=== PATIENT | female | born 1965 | race Caucasian/White ===

== ENCOUNTER 2018-04-24 10:45 | Emergency (ER) | payer BC, OTHER ==
[2018-04-24] MEDS ORDERED: ONDANSETRON 4 MG TAB.RAPDIS PO ONE (12:12)
[2018-04-24] MEDS ORDERED: MECLIZINE HCL 25 MG TABLET PO ONE ×2 (12:12→13:02)
--- NOTE | 2018-04-24 12:16 | ER Document Report ---
ED Medical Screen (RME) - General Chief Complaint: Dizziness Stated Complaint: VOMITING/DIZZY Time Seen by Provider: 04/24/18 12:03 Notes: Patient is a 52-year-old female that presents to the emergency department for chief complaint of lightheadedness, vertigo, and headache after head injury. ROS: GENERAL: Denies fever or chills CV: Denies chest pain PHYSICAL EXAMINATION: Vital signs reviewed. GENERAL: Well-appearing, well-nourished and in no acute distress. HEAD: Atraumatic, normocephalic. EYES: Pupils equal round extraocular movements intact, conjunctiva are normal. ENT: Nares patent NECK: Normal range of motion CV: Heart regular rate and rhythm LUNGS: No respiratory distress Musculoskeletal: Normal range of motion NEUROLOGICAL: Normal speech PSYCH: Normal mood, normal affect. MDM: Patient seen and examined for rapid initial assessment. Vital signs reviewed. A comprehensive ED assessment and evaluation of the patient, analysis of test results and completion of the medical decision making process will be conducted by additional ED providers. *Note is created using voice recognition software and may contain spelling, syntax or grammatical errors. TRAVEL OUTSIDE OF THE [place] IN LAST 30 DAYS: No - Related Data Allergies/Adverse Reactions: promethazine HCl [From Phenergan] Allergy (Mild, Verified 04/24/18 12:04) chicken derived Allergy (Verified 04/24/18 12:04) chicken Allergy (Uncoded 04/24/18 12:04) Past Medical History - Social History Chew tobacco use (# tins/day): No Frequency of alcohol use: Social Drug Abuse: None - Past Medical History Cardiac Medical History: Denies: Hx Coronary Artery Disease, Hx Heart Attack, Hx Hypertension - LOW BLOOD PRESSURE Pulmonary Medical History: Denies: Hx Asthma, Hx Bronchitis, Hx COPD, Hx Pneumonia Neurological Medical History: Reports: Hx Migraine. Denies: Hx Cerebrovascular Accident, Hx Seizures Renal/ Medical History: Denies: Hx Peritoneal Dialysis Musculoskeltal Medical History: Denies Hx Arthritis Past Surgical History: Reports: Hx Abdominal Surgery, Hx Hysterectomy - Immunizations Hx Diphtheria, Pertussis, Tetanus Vaccination: Yes Physical Exam - Vital signs Vitals: Temp Pulse Resp BP Pulse Ox 97.8 F 75 16 134/79 H 98 04/24/18 11:09 04/24/18 11:09 04/24/18 11:09 04/24/18 11:09 04/24/18 11:09 Course - Vital Signs Vital signs: Temp Pulse Resp BP Pulse Ox 97.8 F 75 16 134/79 H 98 04/24/18 11:09 04/24/18 11:09 04/24/18 11:09 04/24/18 11:09 04/24/18 11:09 Doctor's Discharge - Discharge Referrals: OSCAR SIMMONS MD [Primary Care Provider] - Follow up as needed
--- NOTE | 2018-04-24 12:49 | RADIOLOGY REPORT (SQ) ---
EXAM DESCRIPTION: CT HEAD WITHOUT COMPLETED DATE/TIME: 04/24/2018 12:39 pm REASON FOR STUDY: head injury, vomiting, neck pain COMPARISON: 06/06/2011. TECHNIQUE: Axial images acquired through the brain without intravenous contrast. Images reviewed wi th bone, brain and subdural windows. Additional sagittal and coronal reconstructions were generated. Images stored on PACS. All CT scanners at this facility use dose modulation, iterative reconstruction, and/or weight based d osing when appropriate to reduce radiation dose to as low as reasonably achievable (ALARA). [facility]: Dose Right [facility]: CareDose [facility]: Dose Right [facility]: Teradose 4D [facility]: [facility] RADIATION DOSE: CT Rad equipment meets quality standard of care and radiation dose reduction techniq ues were employed. CTDIvol: 53.2 mGy. DLP: 991 mGy-cm. mGy. LIMITATIONS: None. FINDINGS: VENTRICLES: Normal size and contour. CEREBRUM: No masses. No hemorrhage. No midline shift. No evidence for acute infarction. Normal gra y/white matter differentiation. No areas of low density in the white matter. CEREBELLUM: No masses. No hemorrhage. No alteration of density. No evidence for acute infarction. EXTRAAXIAL SPACES: No fluid collections. No masses. ORBITS AND GLOBE: No intra- or extraconal masses. Normal contour of globe without masses. CALVARIUM: No fracture. PARANASAL SINUSES: No fluid or mucosal thickening. SOFT TISSUES: No mass or hematoma. OTHER: No other significant finding. IMPRESSION: NORMAL BRAIN CT WITHOUT CONTRAST. EVIDENCE OF ACUTE STROKE: NO. COMMENT: Quality ID # [id number]: Final reports with documentation of one or more dose reduction techniques (e.g., Automated exposure control, adjustment of the mA and/or kV according to patient size, use of iterative reconstruction technique) TECHNICAL DOCUMENTATION: JOB ID: [id number] [employer]- All Rights Reserved Reading location - IP/workstation name: [email or web address]
--- NOTE | 2018-04-24 12:50 | RADIOLOGY REPORT (SQ) ---
EXAM DESCRIPTION: CT CERVICAL SPINE WITHOUT COMPLETED DATE/TIME: 04/24/2018 12:39 pm REASON FOR STUDY: head injury, neck pain COMPARISON: None. TECHNIQUE: Axial images acquired through the cervical spine without intravenous contrast. Images re viewed with lung, soft tissue and bone windows. Reconstructed coronal and sagittal MPR images review ed. Images stored on PACS. All CT scanners at this facility use dose modulation, iterative reconstruction, and/or weight based d osing when appropriate to reduce radiation dose to as low as reasonably achievable (ALARA). [facility]: Dose Right [facility]: CareDose [facility]: Dose Right [facility]: Teradose 4D [facility]: [employer] RADIATION DOSE: CT Rad equipment meets quality standard of care and radiation dose reduction techniq ues were employed. CTDIvol: 19.7 mGy. DLP: 407 mGy-cm. mGy. LIMITATIONS: None. FINDINGS: ALIGNMENT: Anatomic. MINERALIZATION: Normal. VERTEBRAL BODIES: No fractures or dislocation. DISCS: No significant disc disease. FACETS, LATERAL MASSES, POSTERIOR ELEMENTS: No fractures. No dislocation. No acute findings. HARDWARE: None in the spine. VISUALIZED RIBS: No fractures. LUNG APICES AND SOFT TISSUES: No significant or acute findings. OTHER: No other significant finding. IMPRESSION: NO ACUTE OR SIGNIFICANT FINDINGS IN THE CERVICAL SPINE. TECHNICAL DOCUMENTATION: JOB ID: [id number] Quality ID # [id number]: Final reports with documentation of one or more dose reduction techniques (e.g., Au tomated exposure control, adjustment of the mA and/or kV according to patient size, use of iterative reconstruction technique) 2010 [employer]- All Rights Reserved Reading location - IP/workstation name: [email or web address]
--- NOTE | 2018-04-24 13:01 | ER Document Report ---
ED General - General Mode of Arrival: Ambulatory Information source: Patient TRAVEL OUTSIDE OF THE [place] IN LAST 30 DAYS: No <CHLOE ZARCO - Last Filed: 04/24/18 14:22> <JERRY WILSON - Last Filed: 04/24/18 14:42> - General Chief Complaint: Dizziness Stated Complaint: VOMITING/DIZZY Time Seen by Provider: 04/24/18 12:03 Notes: 52-year-old female who presents to the emergency department today with complaints of neck pain, headache, dizziness. Patient states she has been able to correlate that a few days ago, Monday, at work she was trying to remove a door from a piece of equipment and the door fell and hit her on top of the head forcing her head and neck downwards. Patient states that a few minutes after that occurred she began dry heaving. Patient states she has had dizziness elicited with rapid head movement along with nausea since this. Patient denies diarrhea. (CHLOE ZARCO) - Related Data Allergies/Adverse Reactions: promethazine HCl [From Phenergan] Allergy (Mild, Verified 04/24/18 12:04) chicken derived Allergy (Verified 04/24/18 12:04) chicken Allergy (Uncoded 04/24/18 12:04) Past Medical History - General Information source: Patient - Social History Smoking Status: Never Smoker Cigarette use (# per day): No Chew tobacco use (# tins/day): No Frequency of alcohol use: Social Drug Abuse: None Lives with: Family Family History: Reviewed & Not Pertinent Patient has suicidal ideation: No Patient has homicidal ideation: No Neurological Medical History: Reports: Hx Migraine Past Surgical History: Reports: Hx Abdominal Surgery, Hx Hysterectomy - Immunizations Hx Diphtheria, Pertussis, Tetanus Vaccination: Yes <CHLOE ZARCO - Last Filed: 04/24/18 14:22> Review of Systems - Review of Systems Constitutional: No symptoms reported EENT: No symptoms reported Cardiovascular: See HPI, Dizziness Respiratory: No symptoms reported Gastrointestinal: No symptoms reported Genitourinary: No symptoms reported Female Genitourinary: No symptoms reported Musculoskeletal: See HPI, Neck pain Skin: No symptoms reported Hematologic/Lymphatic: No symptoms reported Neurological/Psychological: See HPI, Headaches -: Yes All other systems reviewed and negative <CHLOE ZARCO - Last Filed: 04/24/18 14:22> Physical Exam <HAROLDOCHLOE - Last Filed: 04/24/18 14:22> <JERRY WILSON - Last Filed: 04/24/18 14:42> - Vital signs Vitals: Temp Pulse Resp BP Pulse Ox 97.8 F 75 16 134/79 H 98 04/24/18 11:09 04/24/18 11:09 04/24/18 11:09 04/24/18 11:09 04/24/18 11:09 - Notes Notes: Physical Exam: General: Alert, appears well. HEENT: Normocephalic. Atraumatic. PERRL. Extraocular movements intact. Oropharynx clear. Dizziness elicited with rapid head movement. Neck: Supple. Posterior cervical, trapezius, and scalp musculature tenderness to palpation. Respiratory: No respiratory distress. Clear and equal breath sounds bilaterally. Cardiovascular: Regular rate and rhythm. Abdominal: Normal Inspection. Non-tender. No distension. Normal Bowel Sounds. Back: Non-tender. No deformity or step off. Extremities: Moves all four extremities. Upper extremities: Normal inspection. Normal ROM. Lower extremities: Normal inspection. No edema. Normal ROM. Neurological: Normal cognition. AAOx4. Normal speech. Psychological: Normal affect. Normal Mood. Skin: Warm. Dry. Normal color. (CHLOE ZARCO) Course <HAROLDOCHLOE - Last Filed: 04/24/18 14:22> - Diagnostic Test Radiology reviewed: Image reviewed, Reports reviewed - CT scans of the head and neck are unremarkable. <JERRY WILSON - Last Filed: 04/24/18 14:42> - Re-evaluation Re-evalutation: 04/24/18 14:37 The patient did not really get much change in her dizzy head feeling after the meclizine. She does not seem to have much nystagmus on exam. I suspect her symptoms are more likely related to a postconcussion syndrome and cervical muscle tension headache following acute cervical strain. (JERRY WILSON) - Vital Signs Vital signs: Temp Pulse Resp BP Pulse Ox 97.8 F 75 16 134/79 H 98 04/24/18 11:09 04/24/18 11:09 04/24/18 11:09 04/24/18 11:09 04/24/18 11:09 Discharge <HAROLDOCHLOE - Last Filed: 04/24/18 14:22> <JERRY WILSON - Last Filed: 04/24/18 14:42> - Discharge Clinical Impression: Muscle contraction headache, Postconcussion syndrome Posterolateral cervical muscle strain Qualifiers: Encounter type: initial encounter Qualified Code(s): S16.1XXA - Strain of muscle, fascia and tendon at neck level, initial encounter Condition: Stable Disposition: HOME, SELF-CARE Additional Instructions: Post-Concussion Syndrome: Post-concussion syndrome often follows a mild head injury. Dizziness, mild nausea, mild headache, trouble concentrating, and a general sense of "not being right" may persist for a week or two. This is a frequent complication of concussion. However, if the symptoms worsen, or new symptoms develop, you should be re-examined by the physician. There is no specific cure for post-concussion syndrome. You can take mild pain medication such as ibuprofen or acetaminophen. While you should not drive if you are dizzy, you can get back to your regular activities as quickly as the symptoms will allow. And while vigorous exercise may worsen the headache, mild physical activity often is helpful. Sitting and thinking about your symptoms will worsen them. If difficulties continue, you may need referral for special therapy to help you regain full mental function. Call the physician if you are worsening, or if symptoms are still present in one week. Report any new symptoms immediately. Tension Headache: Your problem has been diagnosed as cervical muscle tension headache. This very common type of headache occurs because of tightness in the muscles of the head and neck. The treatment of uncomplicated tension headaches is rest and pain medication. Often, anti-inflammatory pain medications are helpful, as these also decrease the irritability of the painful tissues. Muscle relaxers, cold packs, or warm packs are sometimes helpful. Anti-anxiety medication or narcotics are best avoided. Your doctor has evaluated your headache problem, and finds no evidence of a serious health problem as a cause for the headache. If your headache becomes more severe, or if new symptoms develop (such as fever, stiff neck, vomiting, or decreasing alertness) you should be re-examined by the physician. Continue your regular medications to include your Flexeril and Naprosyn. Get plenty of rest. Try ice packs to the back of your neck and shoulder muscles. Follow-up with your doctor if not improving. RETURN TO THE EMERGENCY ROOM IF ANY NEW OR WORSENING SYMPTOMS. Forms: Return to Work Referrals: OSCAR SIMMONS MD [ACTIVE STAFF] - Follow up as needed Scribe Attestation: 04/24/18 14:42 I personally performed the services described in the documentation, reviewed and edited the documentation which was dictated to the scribe in my presence, and it accurately records my words and actions. (JERRY WILSON) Scribe Documentation - Scribe Written by Tesha:: Tesha Laguerre, 04/24/2018 1427 acting as scribe for :: Keisha <CHLOE ZARCO - Last Filed: 04/24/18 14:22>
[2018-04-24 15:20] VITALS: BP 123/82
== END 2018-04-24 15:20 | disposition home or self-care (01) ==
LOC: ER 10:45
DX: S16.1XXA Strain of muscle, fascia and tendon at neck level, initial encounter (principal); M54.2 Cervicalgia; R51 Headache; W20.8XXA Other cause of strike by thrown, projected or falling object, initial encounter; Y93.89 Activity, other specified; Y99.0 Civilian activity done for income or pay; F07.81 Postconcussional syndrome; R42 Dizziness and giddiness; Z88.8 Allergy status to other drugs, medicaments and biological substances; Z91.018 Allergy to other foods
CPT/HCPCS: 99284; 70450; 72125; S0119

== ENCOUNTER 2018-05-01 11:16 | Emergency (ER) | payer OTHER ==
[2018-05-01 11:26] VITALS: BP 128/74
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
== END 2018-05-01 12:10 | disposition home or self-care (01) ==
LOC: ER 11:16
DX: S06.0X0D Concussion without loss of consciousness, subsequent encounter (principal); X58.XXXD Exposure to other specified factors, subsequent encounter; R51 Headache; R11.0 Nausea; H53.8 Other visual disturbances; Z88.8 Allergy status to other drugs, medicaments and biological substances; Z91.018 Allergy to other foods
CPT/HCPCS: 99283

== ENCOUNTER 2020-08-17 09:28 | Emergency (ER) | payer BC, OTHER ==
[2020-08-17 09:43] VITALS: BP 123/64
[2020-08-17] MEDS ORDERED: KETOROLAC TROMETHAMINE INJ/PF 30 MG/1 ML SDV IV ONE (11:16)
[2020-08-17] MEDS ORDERED: ONDANSETRON HCL INJ/PF 4 MG/2 ML SDV IV ONE ×2 (11:16→16:39)
[2020-08-17] MEDS ORDERED: NORMAL SALINE 1000 ML 1,000 ML IV ONE (11:16)
[2020-08-17] MEDS ORDERED: METHOCARBAMOL INJ/PF 1000 MG/10 ML SDV IV ONE (11:16)
[2020-08-17] MEDS ORDERED: METOCLOPRAMIDE HCL INJ/PF 10 MG/2 ML SDV IV ONE (11:17)
--- NOTE | 2020-08-17 12:11 | ER Document Report ---
Entered by ZARI STARKS SCRIBE 08/17/20 1056 Acting as scribe for:JERRY WILSON MD ED GI/ - General Chief Complaint: Nausea/Vomiting/Diarrhea Stated Complaint: NAUSEA VOMITING LOW BACK PAIN Time Seen by Provider: 08/17/20 10:53 Primary Care Provider: OLLIE RIDLEY MD [Primary Care Provider] - Follow up as needed Mode of Arrival: Ambulatory Information source: Patient Notes: This 54 year old female patient with presents to the ED today with complaints of nausea, vomiting, and generalized weakness for the past x2 weeks. Patients reports associated dry cough and decreased PO intake. She states that she has had positive sick contact at home and that a family member did test positive for COVID recently and is now in quarantine. Denies fever. She also mentions low back spasms since [place] that has not gone away with stretching, ice, heat, and walking. She reports the back pain seemed to develop after she had done a lot of lifting and moving things. TRAVEL OUTSIDE OF THE [place] IN LAST 30 DAYS: No - Related Data Allergies/Adverse Reactions: promethazine HCl [From Phenergan] Allergy (Mild, Verified 05/01/18 11:16) chicken derived Allergy (Verified 05/01/18 11:16) chicken Allergy (Uncoded 05/01/18 11:16) Past Medical History - General Information source: Patient, [facility] Records - Social History Smoking Status: Never Smoker Cigarette use (# per day): No Chew tobacco use (# tins/day): No Smoking Education Provided: No Frequency of alcohol use: None Drug Abuse: None Lives with: Family Family History: Reviewed & Not Pertinent - Past Medical History Cardiac Medical History: Reports: Other - Hx Nonischemic Cardiomyopathy Neurological Medical History: Reports: Hx Migraine Musculoskeletal Medical History: Reports Hx Fibromyalgia, Reports Other - Degenerative disc disease Past Surgical History: Reports: Hx Cardiac Catheterization, Hx Gynecologic Surgery - Laparoscopic surgery for endometriosis, Hx Hysterectomy, Hx Orthopedic Surgery - Right hand - Immunizations Hx Diphtheria, Pertussis, Tetanus Vaccination: Yes Review of Systems - Review of Systems Constitutional: See HPI, Weakness. denies: Fever EENT: No symptoms reported Cardiovascular: No symptoms reported Respiratory: See HPI, Cough. denies: Sputum Gastrointestinal: See HPI, Nausea, Vomiting Genitourinary: No symptoms reported Female Genitourinary: No symptoms reported Musculoskeletal: See HPI, Back pain Skin: No symptoms reported Hematologic/Lymphatic: No symptoms reported Neurological/Psychological: No symptoms reported -: Yes All other systems reviewed and negative Physical Exam - Vital signs Vitals: Temp Pulse Resp BP Pulse Ox 98.7 F 103 H 16 123/64 99 08/17/20 09:39 08/17/20 09:39 08/17/20 09:39 08/17/20 09:39 08/17/20 09:39 - General General appearance: Alert In distress: None - HEENT Head: Normocephalic, Atraumatic Eyes: Normal Pupils: PERRL Mucous membranes: Dry Neck: Normal, Supple - Respiratory Respiratory status: No respiratory distress Chest status: Nontender Breath sounds: Normal Chest palpation: Normal - Cardiovascular Rhythm: Regular, Tachycardia Heart sounds: Normal auscultation Murmur: No Friction rub: No Gallop: None auscultated - Abdominal Inspection: Obese Distension: No distension Bowel sounds: Normal Tenderness: Nontender - Abdomen soft Organomegaly: No organomegaly - Back Back: Tender - Tenderness to palpation over lumbar-sacral musculature - Extremities General upper extremity: Normal inspection General lower extremity: Normal inspection. No: Edema - Neurological Neuro grossly intact: Yes Orientation: AAOx4 [place] Coma Scale Eye Opening: Spontaneous Neha Coma Scale Verbal: Oriented [place] Coma Scale Motor: Obeys Commands [place] Coma Scale Total: 15 - Psychological Associated symptoms: Normal affect, Normal mood - Skin Skin Temperature: Warm Skin Moisture: Dry Skin Color: Normal Course - Re-evaluation Re-evalutation: 08/17/20 13:29 Patient reports that her nauseousness is better. States he still has severe pain in her lower back and complains of spasms. - Vital Signs Vital signs: Temp Pulse Resp BP Pulse Ox 98.7 F 103 H 16 123/64 99 08/17/20 09:39 08/17/20 09:39 08/17/20 09:39 08/17/20 09:39 08/17/20 09:39 - Laboratory Results Result Diagrams: 08/17/20 12:08 08/17/20 12:08 Laboratory Results Interpreted: 08/17/20 08/17/20 08/17/20 12:08 12:08 12:08 WBC 3.8 L Plt Count 131 L D-Dimer 0.52 H AST 85 H ALT 80 H Urine Ketones Urine Urobilinogen 08/17/20 16:00 WBC Plt Count D-Dimer AST ALT Urine Ketones 20 H Urine Urobilinogen 4.0 H Critical Laboratory Results Reviewed: No Critical Results - Radiology Results Critical Radiology Results Reviewed: No Critical Results Discharge - Discharge Clinical Impression: Dehydration Nausea and vomiting Qualifiers: Vomiting type: unspecified Vomiting Intractability: non-intractable Qualified Code(s): R11.2 - Nausea with vomiting, unspecified Low back pain Qualifiers: Chronicity: acute Back pain laterality: bilateral Sciatica presence: without sciatica Qualified Code(s): M54.5 - Low back pain Condition: Stable Disposition: HOME, SELF-CARE Additional Instructions: Nausea or Vomiting, Nonspecific: Vomiting (or nausea without vomiting) can be caused by many different problems. Of course, it can mean that something's wrong with the stomach, such as "stomach flu," ulcers, or inflammation. But it can also be a symptom of a problem that has nothing to do with the stomach or intestines. Vomiting is common with severe headaches, earaches, and tonsillitis. We see it with pneumo nelson or heart attacks. Drugs can cause nausea. Many abdominal problems cause vomiting; for example, gallstones, kidney stones, pancreatitis, and intestinal obstruction (blocked bowels). In most cases, curing the vomiting depends on fixing the problem that caused it. For temporary relief, we may use an anti-nausea medicine. For home use, we can prescribe suppositories, chewable pills, pills that dissolve in the mouth, or liquid anti-nausea drugs. If the vomiting seems to be caused by a problem in the stomach, acid-suppressing drugs may be prescribed as well. It's important to avoid dehydration. Sip clear liquids. Take increasing amounts of fluid over the first 24 hours. Then start small amounts of bland foods (such as dry toast, applesauce, mashed potato). Avoid aspirin, tobacco, a nd alcohol. Gradually resume your usual diet. If the vomiting worsens, if the problem that's making you vomit worsens, or if there's evidence of bleeding in the stomach (such as black, tarry stool, bloody or black vomit, or lightheadedness), you should return immediately. Call your doctor if you aren't improved in 24 to 36 hours. Low Back Pain: Three out of every four people will have an episode of disabling back pain during their lifetime. Most commonly the pain is due to straining of the muscles and ligaments in the low back. Usual treatment includes: (1) Rest on a firm surface. Avoid lying on your stomach. (2) Ice pack the painful area. After a few days, gentle heat may be used intermittently to relax the area, or ice packs can be continued. (3) Medication may be needed -- muscle relaxers and antiinflammatory medicines are commonly used. (4) As the back improves, exercises are prescribed to strengthen the back and abdominal muscles. Your doctor will advise you on the proper care for your back at each stage in your recovery. You may be better in a few days -- or healing may take several weeks. If new symptoms of a "herniated disc" (radiation of pain, numbness, or tingling down the back of the leg or weakness in the leg) occur, you should be re-examined. Further testing may be necessary. Take the medications as prescribed for your nausea and vomiting, and low back pain. Drink plenty of cool clear liquids. Rest. Follow-up with your primary care provider for reevaluation if not improving. RETURN TO THE EMERGENCY ROOM IF ANY NEW OR WORSENING SYMPTOMS. Prescriptions: Oxycodone HCl/Acetaminophen [Percocet 5-325 mg Tablet] 1 tab PO ASDIR PRN #15 tablet PRN Reason: Methocarbamol [Robaxin 750 mg Tablet] 750 mg PO ASDIR PRN #40 tablet PRN Reason: Ondansetron [Zofran Odt 4 mg Tablet] 1 - 2 tab PO Q4H PRN #20 tab.rapdis PRN Reason: Referrals: OLLIE RIDLEY MD [Primary Care Provider] - Follow up as needed I personally performed the services described in the documentation, reviewed and edited the documentation which was dictated to the scribe in my presence, and it accurately records my words and actions.
[2020-08-17 12:27] LABS: ABSOLUTE LYMPHOCYTES (AUTO) 0.7 10^3/uL (0.5-4.7); ABSOLUTE MONOCYTES (AUTO) 0.4 10^3/uL (0.1-1.4); ABSOLUTE NEUT (AUTO) 2.7 10^3/uL (1.7-8.2); BASOPHILS % (AUTO) 0.2 % (0-2); HEMATOCRIT 38.2 % (36.0-47.0); HEMOGLOBIN 13.2 g/dL (12.0-15.5); LYMPHOCYTES % (AUTO) 19.3 % (13-45); MEAN CORPUSCULAR HEMOGLOBIN 29.5 pg (27.0-33.4); MEAN CORPUSCULAR HGB CONC 34.5 g/dL (32.0-36.0); MEAN CORPUSCULAR VOLUME 86 fl (80-97); MONOCYTES % (AUTO) 9.4 % (3-13); PLATELET COUNT 131 10^3/uL (150-450); RED BLOOD COUNT 4.47 10^6/uL (3.72-5.28); RED CELL DISTRIBUTION WIDTH 12.9 % (11.5-14.0); SEGMENTED NEUTROPHILS % (AUTO) 71.1 % (42-78); TOTAL CELLS COUNTED % (AUTO) 100 %; WHITE BLOOD COUNT 3.8 10^3/uL (4.0-10.5)
[2020-08-17 12:48] LABS: ALBUMIN 3.9 g/dL (3.5-5.0); ALKALINE PHOSPHATASE 98 U/L (38-126); ANION GAP 9 (5-19); ASPARTATE AMINO TRANSFERASE 85 U/L (14-36); BILIRUBIN,DIRECT 0.1 mg/dL (0.0-0.4); BILIRUBIN,TOTAL 0.6 mg/dL (0.2-1.3); BLOOD UREA NITROGEN 11 mg/dL (7-20); CALCIUM 9.6 mg/dL (8.4-10.2); CARBON DIOXIDE 27 mmol/L (22-30); CHLORIDE 102 mmol/L (98-107); CREATINE KINASE 30 U/L (30-135); GLUCOSE 95 mg/dL (75-110); TOTAL PROTEIN 7.3 g/dL (6.3-8.2)
[2020-08-17] MEDS ORDERED: DEXTROSE 5%-LACTATED RINGERS 1,000 ML IV ONE ×2 (12:58→16:00)
[2020-08-17] MEDS ORDERED: FENTANYL CITRATE INJ/PF 100 MCG/2 ML AMPUL IV ONE ×2 (13:27→16:39)
[2020-08-17 16:21] LABS: APPEARANCE,URINE CLEAR; BILIRUBIN,URINE NEGATIVE (NEGATIVE); COLOR,URINE YELLOW; GLUCOSE, URINE NEGATIVE (NEGATIVE); KETONES,URINE 20 mg/dL (NEGATIVE); LEUKOCYTE ESTERASE,URINE NEGATIVE (NEGATIVE); NITRITE,URINE NEGATIVE (NEGATIVE); PROTEIN,URINE NEGATIVE (NEGATIVE); URINE SPECIFIC GRAVITY 1.019
== END 2020-08-17 17:32 | disposition home or self-care (01) ==
LOC: ER 09:28
DX: E86.0 Dehydration (principal); R11.2 Nausea with vomiting, unspecified; M54.5 Low back pain; R19.7 Diarrhea, unspecified; R53.1 Weakness
CPT/HCPCS: 96376; 99284; 96361; 96375; 96365; 36415; 82550; 83735; 85025; 80053; 81001; 85379; J3010; J2800; J1885; J2765; J2405; J7121; J7030

== ENCOUNTER 2020-08-21 19:01 | Inpatient (IN) | payer BC ==
[2020-08-21] MEDS ORDERED: ONDANSETRON HCL INJ/PF 4 MG/2 ML SDV IV ONE (20:15)
[2020-08-21] MEDS ORDERED: RINGERS SOLUTION,LACTATED 1,000 ML IV ONE (20:15)
--- NOTE | 2020-08-21 20:18 | ER Document Report ---
ED Medical Screen (RME) - General Stated Complaint: VOMIT DIARRHEA Time Seen by Provider: 08/21/20 20:02 Primary Care Provider: OLLIE RIDLEY MD [Primary Care Provider] - Follow up as needed Notes: Patient presents complaining of right-sided flank and abdominal pain for the past month. Patient states she said nausea and vomiting. Patient states today she developed diarrhea which is a new symptom for her. Patient states she has had blood in her stool. Patient complains of headache and fatigue. Patient denies any fever. Patient states that she was here recently for the symptoms and given a prescription for Zofran. Patient denies any improvement. Patient does report a family member testing positive for Covid and her has been around that family member although patient has not been tested herself. I have greeted and performed a rapid initial assessment of this patient. A comprehensive ED assessment and evaluation of the patient, analysis of test results and completion of the medical decision making process will be conducted by additional ED providers. TRAVEL OUTSIDE OF THE [place] IN LAST 30 DAYS: No - Related Data Allergies/Adverse Reactions: promethazine HCl [From Phenergan] Allergy (Mild, Verified 05/01/18 11:16) chicken derived Allergy (Verified 05/01/18 11:16) chicken Allergy (Uncoded 05/01/18 11:16) Past Medical History - Past Medical History Cardiac Medical History: Denies: Hx Coronary Artery Disease, Hx Heart Attack, Hx Hypertension - LOW BLOOD PRESSURE Pulmonary Medical History: Denies: Hx Asthma, Hx Bronchitis, Hx COPD, Hx Pneumonia Neurological Medical History: Reports: Hx Migraine. Denies: Hx Cerebrovascular Accident, Hx Seizures Renal/ Medical History: Denies: Hx Peritoneal Dialysis Musculoskeltal Medical History: Denies Hx Arthritis, Reports Hx Fibromyalgia Past Surgical History: Reports: Hx Abdominal Surgery, Hx Cardiac Catheterization, Hx Gynecologic Surgery - Laparoscopic surgery for endometriosis, Hx Hysterectomy, Hx Orthopedic Surgery - Right hand - Immunizations Hx Diphtheria, Pertussis, Tetanus Vaccination: Yes Physical Exam - Vital signs Vitals: Temp Pulse Resp BP Pulse Ox 98.3 F 93 18 118/106 H 97 08/21/20 19:40 08/21/20 19:40 08/21/20 19:40 08/21/20 19:40 08/21/20 19:40 - General General appearance: Alert Notes: Right flank, right lateral side tenderness, patient coughing in triage Course - Vital Signs Vital signs: Temp Pulse Resp BP Pulse Ox 98.3 F 93 18 118/106 H 97 08/21/20 19:40 08/21/20 19:40 08/21/20 19:40 08/21/20 19:40 08/21/20 19:40 Doctor's Discharge - Discharge Referrals: OLLIE RIDLEY MD [Primary Care Provider] - Follow up as needed
--- NOTE | 2020-08-21 21:08 | RADIOLOGY REPORT (SQ) ---
EXAM DESCRIPTION: CHEST SINGLE VIEW 08/21/2020 8:09 PM PLACEMENT DIRECTOR CLINICAL HISTORY: 54 years Female, cough, cp; ; COMPARISON: None. FINDINGS: Single view is obtained. Cardiac and mediastinal contours are normal. Patchy opacity is evident about the left mid to lower lung zones. This appears to demonstrate a somewhat nodular component about the left midlung zone. Right lung is overall clear. No pneumothorax or large pleural effusion. IMPRESSION: Patchy left mid to lower lung zone opacity. Consider atelectasis or pneumonia/viral pneumonitis. Recommend follow-up to clearing as some of the opacity demonstrates a nodular configuration. Alternatively, these findings could be definitively assessed with CT.
[2020-08-22 00:29] LABS: PROTHROMBIN TIME 13.4 SEC (11.4-15.4)
[2020-08-22 00:46] LABS: HEMATOCRIT 38.2 % (36.0-47.0); HEMOGLOBIN 13.2 g/dL (12.0-15.5); MEAN CORPUSCULAR HEMOGLOBIN 29.4 pg (27.0-33.4); MEAN CORPUSCULAR HGB CONC 34.6 g/dL (32.0-36.0); MEAN CORPUSCULAR VOLUME 85 fl (80-97); PLATELET COUNT 317 10^3/uL (150-450); RED CELL DISTRIBUTION WIDTH 13.1 % (11.5-14.0); WHITE BLOOD COUNT 5.9 10^3/uL (4.0-10.5)
[2020-08-22 01:20] LABS: ABSOLUTE LYMPHOCYTES# (MANUAL) 1.2 10^3/uL (0.5-4.7); BASOPHILS % (MANUAL) 0 % (0-2); EOSINOPHILS % (MANUAL) 1 % (0-6); LYMPHOCYTES % (MANUAL) 21 % (13-45); MONOCYTES % (MANUAL) 17 % (3-13); SEGMENTED NEUTROPHILS % (MAN) 61 % (42-78); TOTAL CELLS COUNTED 100
[2020-08-22 01:22] LABS: PLATELET COMMENT ADEQUATE; RBC MORPHOLOGY COMMENT NORMO-CYTIC/CHROMIC; TOXIC GRANULATION SLIGHT; TOXIC VACUOLATION PRESENT
[2020-08-22 02:38] LABS: ALKALINE PHOSPHATASE 125 U/L (38-126); ANION GAP 12 (5-19); ASPARTATE AMINO TRANSFERASE 74 U/L (14-36); BILIRUBIN,DIRECT 0.2 mg/dL (0.0-0.4); BILIRUBIN,TOTAL 0.8 mg/dL (0.2-1.3); BLOOD UREA NITROGEN 10 mg/dL (7-20); CALCIUM 10.2 mg/dL (8.4-10.2); CARBON DIOXIDE 23 mmol/L (22-30); CHLORIDE 105 mmol/L (98-107); GLUCOSE 113 mg/dL (75-110); TOTAL PROTEIN 7.6 g/dL (6.3-8.2)
[2020-08-22] MEDS ORDERED: ONDANSETRON HCL INJ/PF 4 MG/2 ML SDV ONE (04:28)
[2020-08-22] MEDS ORDERED: MORPHINE SULFATE 10 MG/ML INJ IV ONE (07:05)
[2020-08-22] MEDS ORDERED: NORMAL SALINE 1000 ML 1,000 ML IV ONE (07:05)
[2020-08-22] MEDS ORDERED: METOCLOPRAMIDE HCL INJ/PF 10 MG/2 ML SDV IV ONE (07:06)
--- NOTE | 2020-08-22 07:13 | ER Document Report ---
ED General - General Chief Complaint: Nausea/Vomiting Stated Complaint: VOMIT DIARRHEA Time Seen by Provider: 08/21/20 20:02 TRAVEL OUTSIDE OF THE [place] IN LAST 30 DAYS: No - HPI Notes: Chief complaint: Nausea, vomiting, diarrhea, right flank pain and right-sided lower abdominal pain History of present illness: 54-year-old female with history of intermittent nausea, vomiting, diarrhea, right flank pain and right-sided lower abdominal pain on and off for 6 weeks now getting progressively worse. Patient was seen here 48 hours ago by another provider and sent out after evaluation here with presumptive diagnosis of a viral syndrome and possible muscular strain. She reports her symptoms are ongoing and perhaps getting a little worse. She denies any known history of renal stones. She denies fever. She denies any history of gallstones. She denies any history of hepatitis. She has had a slight dry cough. Possible Covid exposure. Past history is remarkable for history of a cardiomyopathy. She is a non-smoker. She denies abuse of alcohol drugs. - Related Data Allergies/Adverse Reactions: promethazine HCl [From Phenergan] Allergy (Mild, Verified 05/01/18 11:16) chicken derived Allergy (Verified 05/01/18 11:16) chicken Allergy (Uncoded 05/01/18 11:16) Past Medical History - General Information source: Patient, [facility] Records - Social History Smoking Status: Never Smoker Frequency of alcohol use: None Drug Abuse: None Family History: Reviewed & Not Pertinent - Past Medical History Cardiac Medical History: Reports: Hx Congestive Heart Failure Denies: Hx Coronary Artery Disease, Hx Heart Attack, Hx Hypertension - LOW BLOOD PRESSURE Pulmonary Medical History: Denies: Hx Asthma, Hx Bronchitis, Hx COPD, Hx Pneumonia Neurological Medical History: Reports: Hx Migraine. Denies: Hx Cerebrovascular Accident, Hx Seizures Renal/ Medical History: Denies: Hx Peritoneal Dialysis Musculoskeletal Medical History: Denies Hx Arthritis, Reports Hx Fibromyalgia Past Surgical History: Reports: Hx Abdominal Surgery, Hx Cardiac Catheterization, Hx Gynecologic Surgery - Laparoscopic surgery for endometriosis, Hx Hysterectomy, Hx Orthopedic Surgery - Right hand - Immunizations Hx Diphtheria, Pertussis, Tetanus Vaccination: Yes Review of Systems - Review of Systems Notes: Constitutional: Negative for fever. HENT: Negative for sore throat. Eyes: Negative for visual changes. Cardiovascular: Negative for chest pain. Respiratory: As per HPI. Gastrointestinal: As per HPI. Genitourinary: Negative for dysuria. Musculoskeletal: As per HPI. Skin: Negative for rash. Neurological: Negative for headaches, focal weakness or numbness. 10 point ROS negative except as marked above and in HPI. Physical Exam - Vital signs Vitals: Temp Pulse Resp BP Pulse Ox 98.3 F 93 18 118/106 H 97 08/21/20 19:40 08/21/20 19:40 08/21/20 19:40 08/21/20 19:40 08/21/20 19:40 - Notes Notes: GENERAL: Well-developed well-nourished female of approximately stated age who appears moderately uncomfortable. SKIN: Good turgor no rashes. HEAD: Normocephalic atraumatic. EYES: PERRLA. EOMI. Conjunctivae and sclerae clear. EARS: CANALS AND TMS CLEAR. NOSE: CLEAR. MOUTH: Moist mucosa. Good dentition. No stridor or edema. No drooling. NECK: Supple. No masses or thyromegaly. No adenopathy. Carotids 2+ without bruits. No JVD. BACK: Right CVA tenderness. CHEST: Respirations unlabored. Breath sounds clear and symmetrical. HEART: Regular rhythm. No murmur gallop or rub. ABDOMEN: Mild tenderness on deep palpation right lower quadrant. Soft without masses, organomegaly or rebound. Bowel sounds normally active. No bruits. GENITALIA: Deferred. EXTREMITIES: No edema. No calf tenderness. Cap refill less than 1.5 seconds. Dorsalis pedis and posterior tibial pulses 3+ and symmetrical. NEUROLOGICAL: GCS 15. Alert and oriented x3. Normal gait. Fluent speech. Cranial nerves II through XII intact. Sensorimotor and cerebellar normal. Normal tone. PSYCHIATRIC: Flat affect. Course - Re-evaluation Re-evalutation: 08/22/20 09:54 Covid nasal swab testing is pending. Chest x-ray shows patchy infiltrates left greater than right. CT of the chest and abdomen obtained and demonstrate pneumonic process consistent with COVID-[address] of the abdomen suggested mild ileus and some cholelithiasis. Transaminases were mildly elevated. Her bili is normal. She has no fever and no white count although she does have some mild tenderness on deep palpation right upper quadrant. Her O2 sat is now 92% and she still has not urinated and complains of ongoing nausea. She will require admission. Have started on low-flow oxygen. We are giving her IV Decadron and IV antibiotics as well as additional IV fluids. Findings were discussed with the on-call hospitalist Dr. Sands and she requested that we obtain surgical consultation and initially wanted this admission to go to surgery. I indicated to her that I did not feel surgery was likely to intervene operatively at this point on the basis of current clinical findings and the fact that she has an active COVID-19 infection. Telephone consultation has been obtained with Dr. Cisneros he says he will do a formal consultation for the patient. He concurs that no operative intervention would appear indicated based on current findings. He did not feel that additional imaging was necessary or helpful. Case has subsequently been discussed with Dr. Hinton from hospitalist service who will evaluate for admission in emergency department. - Vital Signs Vital signs: Temp Pulse Resp BP Pulse Ox 98.0 F 74 10 L 128/82 H 92 08/22/20 03:59 08/22/20 03:04 08/22/20 10:24 08/22/20 10:24 08/22/20 09:00 - Laboratory Results Result Diagrams: 08/22/20 00:06 08/22/20 01:46 Laboratory Results Interpreted: 08/22/20 08/22/20 08/22/20 00:06 01:46 09:30 Monocytes % (Manual) 17 H Glucose 113 H AST 74 H ALT 107 H SARS-CoV-2 Rap RNA(RT-PCR) POSITIVE H Critical Laboratory Results Reviewed: Yes Attending or Supervising Physician who Reviewed Labs: NICK EWING - Radiology Results Radiology Results Interpreted: 08/22/20 09:54 Chest X-Ray 08/21/20 20:09 IMPRESSION: Patchy left mid to lower lung zone opacity. Consider atelectasis or pneumonia/viral pneumonitis. Recommend follow-up to clearing as some of the opacity demonstrates a nodular configuration. Alternatively, these findings could be definitively assessed with CT. Abdomen/Pelvis CT 08/22/20 07:07 IMPRESSION: 1. Cholelithiasis. 2. Fluid-filled loops of distal small bowel may reflect mild ileus. Although the appendix is not discretely seen, no inflammatory process to suggest appendicitis. 3. Lung opacities. See separately dictated CT chest from same date. Chest CT 08/22/20 07:36 IMPRESSION: Bilateral pneumonia, more extensive in the left lower lobe. Critical Radiology Results Reviewed: Yes Attending or Supervising Physician who Reviewed Radiology: NICK EWING Discharge - Discharge Clinical Impression: Bilateral pneumonia, Cholelithiasis, Dehydration Condition: Good Disposition: ADMITTED INPATIENT Admitting Provider: Mary Jane (Hospitalist) Unit Admitted: Telemetry
--- NOTE | 2020-08-22 07:50 | EKG REPORT ---
SEVERITY:- NORMAL ECG - SINUS RHYTHM : Confirmed by: Cachorro Ochoa MD 22-Aug-2020 07:49:18
--- NOTE | 2020-08-22 08:49 | RADIOLOGY REPORT (SQ) ---
EXAM DESCRIPTION: CT ABD/PELVIS WITH IV ONLY IMAGES COMPLETED DATE/TIME: 08/22/2020 8:34 am REASON FOR STUDY: RLQ pain COMPARISON: None. TECHNIQUE: CT scan of the abdomen and pelvis performed using helical scanning technique with dynamic intravenous contrast injection. No oral contrast. Images reviewed with lung, soft tissue, and bone windows. Reconstructed coronal and sagittal MPR images reviewed. Delayed images for evaluation of the urinary system also acquired. All images stored on PACS. All CT scanners at this facility use dose modulation, iterative reconstruction, and/or weight based d osing when appropriate to reduce radiation dose to as low as reasonably achievable (ALARA). [facility]: Dose Right [facility]: CareDose [facility]: Dose Right [facility]: Teradose 4D [facility]: [employer] Technologies RENAL FUNCTION: Not provided. RADIATION DOSE: CT Rad equipment meets quality standard of care and radiation dose reduction techniq ues were employed. CTDIvol: 5.9 - 15.4 mGy. DLP: 1929 mGy-cm.. LIMITATIONS: None. FINDINGS: LOWER CHEST: See separate dictation same date. Patchy peripheral infiltrates are suggeste d. LIVER: Normal size. No masses. No dilated ducts. SPLEEN: Normal size. No focal lesions. PANCREAS: No masses. No significant calcifications. No adjacent inflammation or peripancreatic fluid collections. Pancreatic duct not dilated. GALLBLADDER: Cholelithiasis. Gallbladder otherwise normal. ADRENAL GLANDS: No significant masses or asymmetry. RIGHT KIDNEY AND URETER: No solid masses. No significant calcification. No hydronephrosis or hydroure ter. LEFT KIDNEY AND URETER: No solid masses. No significant calcification. No hydronephrosis or hydrouret er. AORTA AND VESSELS: No aneurysm. No dissection. Renal arteries, SMA, celiac without stenosis. RETROPERITONEUM: No retroperitoneal adenopathy, hemorrhage or masses. BOWEL AND PERITONEAL CAVITY: No fixed mechanical obstruction detected. No mass or inflammatory stevenson es. Mild fluid-filled terminal ileum may represent ileus. APPENDIX: Not seen. No right lower quadrant inflammatory changes. PELVIS: No mass. No free fluid. Normal bladder. ABDOMINAL WALL: No masses. No hernias. BONES: No significant or acute findings. OTHER: No other significant finding. IMPRESSION: 1. Cholelithiasis. 2. Fluid-filled loops of distal small bowel may reflect mild ileus. Although the appendix is not dis cretely seen, no inflammatory process to suggest appendicitis. 3. Lung opacities. See separately dictated CT chest from same date. TECHNICAL DOCUMENTATION: JOB ID: [id number] Quality ID # [id number]: Final reports with documentation of one or more dose reduction techniques (e.g., Au tomated exposure control, adjustment of the mA and/or kV according to patient size, use of iterative reconstruction technique) 2010 [employer]- All Rights Reserved Reading location - IP/workstation name: [email or web address]
--- NOTE | 2020-08-22 08:56 | RADIOLOGY REPORT (SQ) ---
EXAM DESCRIPTION: CT CHEST WITH IMAGES COMPLETED DATE/TIME: 08/22/2020 8:34 am REASON FOR STUDY: abn CXR COMPARISON: None. TECHNIQUE: CT scan of the chest performed using helical scanning technique with dynamic intravenous contrast injection. Images reviewed with lung, soft tissue and bone windows. Reconstructed coronal and sagittal MPR and MIP images reviewed. All images stored on PACS. All CT scanners at this facility use dose modulation, iterative reconstruction, and/or weight based d osing when appropriate to reduce radiation dose to as low as reasonably achievable (ALARA). [facility]: Dose Right [facility]: CareDose [facility]: Dose Right [facility]: Teradose 4D [facility]: Tansler CONTRAST TYPE AND DOSE: contrast/concentration: Isovue 350.00 mmol/ml; Total Contrast Delivered: 100 .0 ml; Total Saline Delivered: 72.0 ml RENAL FUNCTION: GFR > 60. RADIATION DOSE: . LIMITATIONS: None. FINDINGS: LUNGS AND PLEURA: Subsegmental airspace disease left lower lobe. More patchy subsegmental airspace disease left upper and right upper lobes. Some associated ground-glass attenuation. Centr al patent airways. No effusions. HILAR AND MEDIASTINAL STRUCTURES: No identified masses or abnormal nodes. HEART AND VASCULAR STRUCTURES: No aneurysm or dissection. No central pulmonary emboli. No pericardi al effusion. HARDWARE: None in the chest. UPPER ABDOMEN: See separate report of the CT of the abdomen. THYROID AND OTHER SOFT TISSUES: No masses. No adenopathy. BONES: No significant finding. OTHER: No other significant finding. IMPRESSION: Bilateral pneumonia, more extensive in the left lower lobe. TECHNICAL DOCUMENTATION: JOB ID: [id number] Quality ID # [id number]: Final reports with documentation of one or more dose reduction techniques (e.g., Au tomated exposure control, adjustment of the mA and/or kV according to patient size, use of iterative reconstruction technique) 2010 [employer]- All Rights Reserved Reading location - IP/workstation name: TRANSFER CAR OPERATOR [email or web address]
[2020-08-22] MEDS ORDERED: DEXAMETHASONE SOD PHOS INJ 10 MG/1 ML VIAL IV ONE (09:17)
[2020-08-22] MEDS ORDERED: CEFTRIAXONE 1 GM/D5W RTU 1 GM/50 ML RTUPB IV ONE (09:19)
[2020-08-22] MEDS ORDERED: AZITHROMYCIN INJ 500 MG VIAL IV ONE (09:19)
[2020-08-22] MEDS ORDERED: FENTANYL CITRATE INJ/PF 100 MCG/2 ML AMPUL IV PRN (11:15)
[2020-08-22] MEDS ORDERED: ACETAMINOPHEN 325 MG TABLET PO PRN (11:17)
--- NOTE | 2020-08-22 11:44 | PDOC H&P ---
History of Present Illness Admission Date/PCP: OLLIE RIDLEY MD History of Present Illness: JULI LIM is a 54 year old female with a history of fibromyalgia, obesity, and an alleged history of nonischemic cardiomyopathy for which she has followed up at [facility]. She presents with persistent nausea, vomiting, and abdominal pain. She said that it started sometime around Thanksgiving. She has had nausea and vomiting off and on throughout this, and often when she feels hungry she will eat and then throw it back up. She said she has had a hard time keeping anything down consistently, and has tried to adequately hydrate even when she did not feel like eating. She says her pain is primarily in the right upper quadrant of her abdomen. She also feels some pain on the right side of her lower back. None of these symptoms are persistent, they come and go, but they do so frequently. She is not sure whether or not eating makes her abdominal pain worse. She has not noticed any fevers or shortness of breath. She has had a few bouts of diarrhea, and her bottom has felt sore as a result, and she thinks she may have seen some blood in her stool but cannot be certain. She has some mild elevations in her transaminases but they have been stable over several days, as she has been to the ER recently. She had a CT of the chest abdomen and pelvis which showed some cholelithiasis but no evidence of outright cholecystitis. No evidence of pancreatitis. She is currently comfortable on room air. Her vital signs are all stable and within normal limits. CT of the chest also showed some scant patchy opacities, worse in the left lower lobe. They decided to test her for Covid in the ER and it came back positive. Past Medical History Cardiac Medical History: Reports: Congestive Heart Failure Denies: Coronary Artery Disease, Myocardial Infarction, Hypertension - LOW BLOOD PRESSURE Pulmonary Medical History: Denies: Asthma, Bronchitis, Chronic Obstructive Pulmonary Disease (COPD), Pneumonia Neurological Medical History: Reports: Migraine Denies: Seizures Musculoskeltal Medical History: Reports: Fibromyalgia Denies: Arthritis Hematology: Reports: Anemia Past Surgical History Past Surgical History: Reports: Cardiac Catheterization, Hysterectomy, Orthopedic Surgery - Right hand Social History Smoking Status: Never Smoker Frequency of Alcohol Use: Rare Hx Recreational Drug Use: No Hx Prescription Drug Abuse: No Family History Family History: Reviewed & Not Pertinent Parental Family History Reviewed: No - Unknown Children Family History Reviewed: Unknown Sibling(s) Family History Reviewed.: Unknown Medication/Allergy Home Medications: Zolpidem Tartrate [Ambien] 10 mg PO QHS PRN 10/08/14 Docusate Sodium [Colace 100 mg Capsule] 100 mg PO BID #60 capsule 01/18/15 Polyethylene Glycol 3350 [Miralax Powder 17 gm/Packet] 1 cap PO DAILY #1 bottle 01/18/15 Tramadol HCl [Ultram] 50 mg PO TID #30 tablet 01/18/15 Carvedilol [Coreg] 1 tab PO Q12 02/02/15 Cetirizine HCl [Allergy] 10 mg PO DAILY 02/02/15 Polyethylene Glycol 3350 [Miralax] 1 dose PO ASDIR PRN 02/02/15 Sennosides/Docusate Sodium [Stool Softener Tablet] 1 each PO BID 02/02/15 Tapentadol HCl [Nucynta] 50 mg PO Q4H PRN 02/02/15 Tramadol HCl 50 mg PO TID 02/02/15 Methocarbamol [Robaxin 750 mg Tablet] 750 mg PO ASDIR PRN #40 tablet 08/17/20 Ondansetron [Zofran Odt 4 mg Tablet] 1 - 2 tab PO Q4H PRN #20 tab.rapdis 08/17/20 Oxycodone HCl/Acetaminophen [Percocet 5-325 mg Tablet] 1 tab PO ASDIR PRN #15 tablet 08/17/20 Allergies/Adverse Reactions: promethazine HCl [From Phenergan] Allergy (Mild, Verified 05/01/18 11:16) chicken derived Allergy (Verified 05/01/18 11:16) chicken Allergy (Uncoded 05/01/18 11:16) Review of Systems All systems: reviewed and no additional remarkable complaints except as stated - All systems were reviewed and were negative except as noted in the HPI Physical Exam Vital Signs: Temp Pulse Resp BP Pulse Ox 98.0 F 74 10 L 128/82 H 92 08/22/20 03:59 08/22/20 03:04 08/22/20 10:24 08/22/20 10:24 08/22/20 09:00 Intake & Output 08/21/20 08/22/20 08/23/20 06:59 06:59 06:59 Intake Total 1000 1050 Balance 1000 1050 Weight 99.2 kg General appearance: PRESENT: no acute distress, cooperative, disheveled, obese Head exam: PRESENT: atraumatic, normocephalic Eye exam: PRESENT: EOMI, PERRLA. ABSENT: conjunctival injection, nystagmus, scleral icterus Ear exam: PRESENT: normal external ear exam Mouth exam: PRESENT: neck supple Neck exam: PRESENT: full ROM. ABSENT: carotid bruit, JVD, lymphadenopathy, meningismus, tenderness, thyromegaly Respiratory exam: PRESENT: clear to auscultation janki, symmetrical, unlabored. A BSENT: accessory muscle use, chest wall tenderness, crackles, prolonged expiratory phas, rhonchi, tachypnea, wheezes Cardiovascular exam: PRESENT: RRR, +S1, +S2 Pulses: PRESENT: normal carotid pulses Vascular exam: PRESENT: normal capillary refill GI/Abdominal exam: PRESENT: hypoactive bowel sounds, soft, tenderness - Right upper quadrant. ABSENT: distended, guarding, rebound Extremities exam: ABSENT: clubbing, pedal edema Musculoskeletal exam: PRESENT: normal inspection. ABSENT: deformity Neurological exam: PRESENT: awake, oriented to person, oriented to place, oriented to situation, CN II-XII grossly intact. ABSENT: motor sensory deficit Psychiatric exam: PRESENT: flat affect Skin exam: PRESENT: dry, warm Results Laboratory Results: 08/22/20 00:06 08/22/20 01:46 08/22/20 08/22/20 08/22/20 00:06 00:06 01:46 WBC 5.9 RBC 4.50 Hgb 13.2 Hct 38.2 MCV 85 MCH 29.4 MCHC 34.6 RDW 13.1 Plt Count 317 Seg Neutrophils % Not Reportable Sodium Cancelled 140.0 Potassium Cancelled 4.0 Chloride Cancelled 105 Carbon Dioxide Cancelled 23 Anion Gap Cancelled 12 BUN Cancelled 10 Creatinine Cancelled 0.67 Est GFR ( Amer) Cancelled > 60 Est GFR (Non-Af Amer) Cancelled Glucose Cancelled 113 H Calcium Cancelled 10.2 Magnesium Cancelled 2.2 Total Bilirubin Cancelled 0.8 AST Cancelled 74 H Alkaline Phosphatase Cancelled 125 Total Protein Cancelled 7.6 Albumin Cancelled 4.0 Lipase Cancelled 92.4 01/02/21 01/02/21 00:06 01:46 Troponin I Cancelled < 0.012 Impressions: Chest X-Ray 08/21/20 20:09 IMPRESSION: Patchy left mid to lower lung zone opacity. Consider atelectasis or pneumonia/viral pneumonitis. Recommend follow-up to clearing as some of the opacity demonstrates a nodular configuration. Alternatively, these findings could be definitively assessed with CT. Abdomen/Pelvis CT 08/22/20 07:07 IMPRESSION: 1. Cholelithiasis. 2. Fluid-filled loops of distal small bowel may reflect mild ileus. Although the appendix is not discretely seen, no inflammatory process to suggest appendicitis. 3. Lung opacities. See separately dictated CT chest from same date. Chest CT 08/22/20 07:36 IMPRESSION: Bilateral pneumonia, more extensive in the left lower lobe. Assessment and Plan - Diagnosis (1) Nausea and vomiting Qualifiers: Vomiting type: unspecified Vomiting Intractability: intractable Qualified Code(s): R11.2 - Nausea with vomiting, unspecified Is this a current diagnosis for this admission?: Yes (2) Dehydration Is this a current diagnosis for this admission?: Yes (3) Cholelithiasis Qualifiers: Cholelithiasis location: gallbladder Cholecystitis presence: without cholecystitis Biliary obstruction: without biliary obstruction Qualified Code(s): K80.20 - Calculus of gallbladder without cholecystitis without obstruction Is this a current diagnosis for this admission?: Yes (4) Lab test positive for detection of COVID-19 virus Is this a current diagnosis for this admission?: Yes (5) Obesity (BMI 30.0-34.9) Is this a current diagnosis for this admission?: Yes (6) Fibromyalgia Is this a current diagnosis for this admission?: Yes (7) Nonischemic cardiomyopathy Is this a current diagnosis for this admission?: Yes - Plan Summary Summary: The main thing that brought her to the hospital was her complaints of abdominal pain, nausea, and vomiting. Were given her some IV fluids and antiemetics. We will put her on some clear liquids for now. I have ordered a HIDA scan to assess for gallbladder dysfunction. General surgery has been consulted. She tested positive for SARS coronavirus 2, but she does not really manifest out right symptoms of COVID-19 at this time; at least, if she does have the disease she has an atypical presentation. I am going to treat her with the i-MASK protocol for outpatient treatment of coronavirus infection. This consists of ivermectin, vitamin B complex, vitamin C, vitamin D3, melatonin, and zinc. She is not hypoxic and has no dyspnea and so there is no role for steroids at this point. We will obviously monitor her for respiratory decompensation. The pattern on her chest imaging is also not typical for COVID-19, and with all of her vomiting, she could have aspirated. Therefore, we will put her empirically on some Zosyn. We will follow the trend in her CRP and ferritin while she is here. DVT prophylaxis with Lovenox for now, if her D-dimer is greater than 1 we will transition her to therapeutic anticoagulation. - Time Time Spent with patient: 35 or more minutes Anticipated Discharge Disposition: Unknown Anticipated Discharge Timeframe: Unknown - Inpatient Certification Based on my medical assessment, after consideration of the patient's comorbidities, presenting symptoms, or acuity I expect that the services needed warrant INPATIENT care.: Yes I certify that my determination is in accordance with my understanding of Medicare's requirements for reasonable and necessary INPATIENT services [42 CFR 412.3e].: Yes Medical Necessity: Significant Comorbidiites Make Outpatient Treatment Too Risky, Need Close Monitoring Due to Risk of Patient Decompensation, Need For IV Fluids, Need For Continuous Telemetry Monitoring, Need for Pain Control, Need for IV Antibiotics, Risk of Complication if Not Cared For in Hospital
--- NOTE | 2020-08-22 11:46 | PDOC CONSULTATION ---
Consultation Consult Date: 08/22/20 Attending physician:: NICK EWING Provider Consulted: VIOLET SALAS Consult reason:: GALLSTONES History of Present Illness Admission Date/PCP: 08/22/20 11:30 OLLIE RIDLEY MD History of Present Illness: JULI LIM is a 54 year old female and abdominal pain for the past month. Patient states she said nausea and vomiting. The nausea vomiting according to the patient has been going on for years patient states today she developed diarrhea which is a new symptom for her. Patient states she has had blood in her stool. Patient complains of headache and fatigue. Patient denies any fever. Patient states that she was here recently for the symptoms and given a prescription for Zofran. Patient denies any improvement. Patient does report a family member testing positive for Covid and her has been around that family member although patient has not been tested herself Patient has been worked up in the emergency room with a CT scan of the chest and abdomen which showed gallstones without any pericholecystic fluid or gallbladder wall thickening and bilateral pneumonia presumably a bilateral Covid pneumonia. Currently she denies any new type of right-sided abdominal pain other than the kind she been having for months and the nausea and vomiting that she has been having for years. Past Medical History Cardiac Medical History: Reports: Congestive Heart Failure Denies: Coronary Artery Disease, Myocardial Infarction, Hypertension - LOW BLOOD PRESSURE Pulmonary Medical History: Denies: Asthma, Bronchitis, Chronic Obstructive Pulmonary Disease (COPD), Pneumonia Neurological Medical History: Reports: Migraine Denies: Seizures Musculoskeltal Medical History: Reports: Fibromyalgia Denies: Arthritis Hematology: Reports: Anemia Past Surgical History Past Surgical History: Reports: Cardiac Catheterization, Hysterectomy, Orthopedic Surgery - Right hand Social History Smoking Status: Never Smoker Frequency of Alcohol Use: Rare Hx Recreational Drug Use: No Hx Prescription Drug Abuse: No Family History Family History: Reviewed & Not Pertinent Parental Family History Reviewed: No Children Family History Reviewed: NA Sibling(s) Family History Reviewed.: NA Medication/Allergy Home Medications: Zolpidem Tartrate [Ambien] 10 mg PO QHS PRN 10/08/14 Docusate Sodium [Colace 100 mg Capsule] 100 mg PO BID #60 capsule 01/18/15 Polyethylene Glycol 3350 [Miralax Powder 17 gm/Packet] 1 cap PO DAILY #1 bottle 01/18/15 Tramadol HCl [Ultram] 50 mg PO TID #30 tablet 01/18/15 Carvedilol [Coreg] 1 tab PO Q12 02/02/15 Cetirizine HCl [Allergy] 10 mg PO DAILY 02/02/15 Polyethylene Glycol 3350 [Miralax] 1 dose PO ASDIR PRN 02/02/15 Sennosides/Docusate Sodium [Stool Softener Tablet] 1 each PO BID 02/02/15 Tapentadol HCl [Nucynta] 50 mg PO Q4H PRN 02/02/15 Tramadol HCl 50 mg PO TID 02/02/15 Methocarbamol [Robaxin 750 mg Tablet] 750 mg PO ASDIR PRN #40 tablet 08/17/20 Ondansetron [Zofran Odt 4 mg Tablet] 1 - 2 tab PO Q4H PRN #20 tab.rapdis 08/17/20 Oxycodone HCl/Acetaminophen [Percocet 5-325 mg Tablet] 1 tab PO ASDIR PRN #15 tablet 08/17/20 Allergies/Adverse Reactions: promethazine HCl [From Phenergan] Allergy (Mild, Verified 05/01/18 11:16) chicken derived Allergy (Verified 05/01/18 11:16) chicken Allergy (Uncoded 05/01/18 11:16) Review of Systems Constitutional: PRESENT: as per HPI, fatigue, weakness, weight loss Eyes: ABSENT: as per HPI, visual disturbances, other Ears: ABSENT: hearing changes Nose, Mouth, and Throat: PRESENT: headache(s) Cardiovascular: ABSENT: as per HPI, chest pain, dyspnea on exertion, edema, orthropnea, palpitations, other Respiratory: PRESENT: cough Gastrointestinal: PRESENT: abdominal pain, bloating, nausea, vomiting Genitourinary: ABSENT: as per HPI, difficulty urinating, dysuria, hematuria, nocturia, other Musculoskeletal: ABSENT: as per HPI, back pain, deformity, joint swelling, muscle weakness, other Integumentary: ABSENT: as per HPI, diaphoresis, erythema, lesions, pruritus, rash, wounds, other Neurological: ABSENT: as per HPI, abnormal gait, abnormal movements, abnormal speech, confusion, convulsions, dizziness, focal weakness, frequent falls, lack of coordination, memory loss, numbness, paresthesias, restless legs, syncope, tingling, tremor(s), vertigo, weakness, other Psychiatric: ABSENT: as per HPI, anxiety, depression, hallucinations, homidical ideation, suicidal ideation, other Endocrine: ABSENT: as per HPI, cold intolerance, flushing, heat intolerance, menstrual abnormalities, polydipsia, polyphagia, polyuria, other Hematologic/Lymphatic: ABSENT: as per HPI, easy bleeding, easy bruising, lymphadenopathy, other Allergic/Immunologic: ABSENT: as per HPI, seasonal rhinorrhea, other Physical Exam Vital Signs: Temp Pulse Resp BP Pulse Ox 98.0 F 74 10 L 128/82 H 92 08/22/20 03:59 08/22/20 03:04 08/22/20 10:24 08/22/20 10:24 08/22/20 09:00 Intake & Output 08/21/20 08/22/20 08/23/20 06:59 06:59 06:59 Intake Total 1000 1050 Balance 1000 1050 Weight 99.2 kg Results Laboratory Results: 08/22/20 00:06 08/22/20 01:46 08/22/20 08/22/20 08/22/20 00:06 00:06 01:46 WBC 5.9 RBC 4.50 Hgb 13.2 Hct 38.2 MCV 85 MCH 29.4 MCHC 34.6 RDW 13.1 Plt Count 317 Seg Neutrophils % Not Reportable Sodium Cancelled 140.0 Potassium Cancelled 4.0 Chloride Cancelled 105 Carbon Dioxide Cancelled 23 Anion Gap Cancelled 12 BUN Cancelled 10 Creatinine Cancelled 0.67 Est GFR ( Amer) Cancelled > 60 Est GFR (Non-Af Amer) Cancelled Glucose Cancelled 113 H Calcium Cancelled 10.2 Magnesium Cancelled 2.2 Total Bilirubin Cancelled 0.8 AST Cancelled 74 H Alkaline Phosphatase Cancelled 125 Total Protein Cancelled 7.6 Albumin Cancelled 4.0 Lipase Cancelled 92.4 08/22/20 08/22/20 00:06 01:46 Troponin I Cancelled < 0.012 Impressions: Chest X-Ray 08/21/20 20:09 IMPRESSION: Patchy left mid to lower lung zone opacity. Consider atelectasis or pneumonia/viral pneumonitis. Recommend follow-up to clearing as some of the opacity demonstrates a nodular configuration. Alternatively, these findings could be definitively assessed with CT. Abdomen/Pelvis CT 08/22/20 07:07 IMPRESSION: 1. Cholelithiasis. 2. Fluid-filled loops of distal small bowel may reflect mild ileus. Although the appendix is not discretely seen, no inflammatory process to suggest appendicitis. 3. Lung opacities. See separately dictated CT chest from same date. Chest CT 08/22/20 07:36 IMPRESSION: Bilateral pneumonia, more extensive in the left lower lobe. Assessment & Plan - Plan Summary Plan Summary: Patient is cholelithiasis seen on CT scan patient with minimal symptoms of biliary colic at this point. She does have chronic nausea and vomiting which she is had for years and has never really been worked up with an ultrasound of her gallbladder prior. In addition to this over the last month or so she has been having increasing nausea and vomiting and some right-sided abdominal pain recently she has been exposed to Covid in fact herself is positive for Covid with bilateral induced interstitial changes seen on her CT scan consistent with bilateral pneumonia. Patient is being admitted to the medicine service for treatment of bilateral pneumonia. Recommendations for surgery. Patient may need a work-up as an outpatient for her cholelithiasis and her secondary chronic nausea and vomiting and this can be done after she is recovered from and been discharged from the hospital as an outpatient. Currently patient does not have an indication for an emergent laparoscopic cholecystectomy for her gallstones. Please reconsult surgery as necessary.
[2020-08-22] MEDS ORDERED: IVERMECTIN 3 MG TABLET PO ONE (12:00)
[2020-08-22] MEDS: CHOLECALCIFEROL (D3) 1,000 UNIT (25 MCG) TABLET PO SCH (12:39)
[2020-08-22] MEDS: ZINC SULFATE 220 MG CAPSULE PO SCH (12:39)
[2020-08-22] MEDS: PIPERACILLIN SODIUM/TAZOBACTAM 3.375 GM in NORMAL SALINE 100 ML IV SCH ×3 (12:39→23:14)
[2020-08-22] MEDS: VITAMIN B COMPLEX TABLET PO SCH (12:39)
[2020-08-22] MEDS: ENOXAPARIN SODIUM INJ 40 MG/0.4 ML DISP.SYRIN SUBCUT SCH (12:39)
[2020-08-22] MEDS: ASCORBIC ACID 500 MG TABLET PO SCH ×2 (12:39→18:18)
[2020-08-22 12:54] LABS: INTERNATIONAL RATION (INR) 1.02; PARTIAL THROMBOPLASTIN TIME 28.1 SEC (23.5-35.8); PROTHROMBIN TIME 13.6 SEC (11.4-15.4)
[2020-08-22 12:57] LABS: D-DIMER 0.83 ug/mL (0.00-0.50)
[2020-08-22 13:11] LABS: C-REACTIVE PROTEIN 20.9 mg/L (<10.0)
[2020-08-22] MEDS: ONDANSETRON HCL INJ/PF 4 MG/2 ML SDV IV PRN (20:01)
[2020-08-22] MEDS: MELATONIN 5 MG TABLET PO SCH (21:06)
[2020-08-23] MEDS: NITROGLYCERIN 0.4 MG/TAB 25 TAB/BOTTLE SL PRN ×3 (03:43→04:11)
[2020-08-23 04:03] LABS: ABSOLUTE LYMPHOCYTES (AUTO) 0.8 10^3/uL (0.5-4.7); ABSOLUTE MONOCYTES (AUTO) 0.5 10^3/uL (0.1-1.4); ABSOLUTE NEUT (AUTO) 4.4 10^3/uL (1.7-8.2); EOSINOPHILS % (AUTO) 0.1 % (0-6); HEMATOCRIT 34.8 % (36.0-47.0); HEMOGLOBIN 11.8 g/dL (12.0-15.5); LYMPHOCYTES % (AUTO) 13.8 % (13-45); MEAN CORPUSCULAR HEMOGLOBIN 28.7 pg (27.0-33.4); MEAN CORPUSCULAR HGB CONC 33.9 g/dL (32.0-36.0); MEAN CORPUSCULAR VOLUME 85 fl (80-97); MONOCYTES % (AUTO) 8.7 % (3-13); PLATELET COUNT 281 10^3/uL (150-450); RED BLOOD COUNT 4.12 10^6/uL (3.72-5.28); RED CELL DISTRIBUTION WIDTH 12.7 % (11.5-14.0); SEGMENTED NEUTROPHILS % (AUTO) 77.4 % (42-78); TOTAL CELLS COUNTED % (AUTO) 100 %; WHITE BLOOD COUNT 5.7 10^3/uL (4.0-10.5)
[2020-08-23 04:15] LABS: ALBUMIN 3.6 g/dL (3.5-5.0); ALKALINE PHOSPHATASE 104 U/L (38-126); ANION GAP 12 (5-19); ASPARTATE AMINO TRANSFERASE 62 U/L (14-36); BILIRUBIN,DIRECT 0.2 mg/dL (0.0-0.4); BILIRUBIN,TOTAL 0.7 mg/dL (0.2-1.3); BLOOD UREA NITROGEN 8 mg/dL (7-20); CARBON DIOXIDE 21 mmol/L (22-30); CHLORIDE 110 mmol/L (98-107); GLUCOSE 131 mg/dL (75-110); POTASSIUM 3.9 mmol/L (3.6-5.0)
[2020-08-23 04:20] LABS: CREATINE KINASE MB 0.33 ng/mL (<4.55)
[2020-08-23 04:31] LABS: TROPONIN I < 0.012 ng/mL
[2020-08-23] MEDS: PIPERACILLIN SODIUM/TAZOBACTAM 3.375 GM in NORMAL SALINE 100 ML IV SCH ×4 (05:22→23:28)
[2020-08-23] MEDS: RINGERS SOLUTION,LACTATED 1,000 ML IV PRN (05:24)
--- NOTE | 2020-08-23 09:45 | EKG REPORT ---
SEVERITY:- NORMAL ECG - SINUS RHYTHM WITH FIRST DEGREE AV BLOCK : Confirmed by: Cachorro Ochoa MD 23-Aug-2020 09:44:45
[2020-08-23] MEDS: ASCORBIC ACID 500 MG TABLET PO SCH ×2 (10:41→17:17)
[2020-08-23] MEDS: ENOXAPARIN SODIUM INJ 40 MG/0.4 ML DISP.SYRIN SUBCUT SCH (10:41)
[2020-08-23] MEDS: VITAMIN B COMPLEX TABLET PO SCH (10:41)
[2020-08-23] MEDS: CHOLECALCIFEROL (D3) 1,000 UNIT (25 MCG) TABLET PO SCH (10:41)
[2020-08-23] MEDS: ONDANSETRON HCL INJ/PF 4 MG/2 ML SDV IV PRN (16:40)
[2020-08-23] MEDS: ZINC SULFATE 220 MG CAPSULE PO SCH (16:40)
--- NOTE | 2020-08-23 17:55 | PDOC PROGRESS REPORT ---
Subjective Date:: 08/23/20 Subjective:: No adverse events overnight. She did complain of some chest pain overnight but her EKG was unremarkable and her troponins have been negative. Her chest pain resolved spontaneously. She is not complaining of any discomfort this morning. She was more worried about the [employer] football game. No dyspnea. Reason For Visit: INTRACTABLE N/V, RUQ PAIN Physical Exam Vital Signs: Temp Pulse Resp BP Pulse Ox 98.3 F 75 16 108/55 L 96 08/23/20 16:28 08/23/20 16:28 08/23/20 16:28 08/23/20 16:28 08/23/20 16:28 Intake & Output 08/22/20 08/23/20 08/24/20 06:59 06:59 06:59 Intake Total 1000 1170 360 Output Total 300 Balance 1000 870 360 Weight 99.2 kg 99.2 kg General appearance: PRESENT: no acute distress, cooperative, disheveled, obese Respiratory exam: PRESENT: clear to auscultation janki, symmetrical, unlabored. ABSENT: accessory muscle use, chest wall tenderness, crackles, prolonged expir atory phas, rhonchi, tachypnea, wheezes Cardiovascular exam: PRESENT: RRR, +S1, +S2 Pulses: PRESENT: normal carotid pulses Vascular exam: PRESENT: normal capillary refill GI/Abdominal exam: PRESENT: hypoactive bowel sounds, soft, tenderness - Right upper quadrant. ABSENT: distended, guarding, rebound Extremities exam: ABSENT: clubbing, pedal edema Musculoskeletal exam: PRESENT: normal inspection. ABSENT: deformity Neurological exam: PRESENT: awake, oriented to person, oriented to place, oriented to situation Psychiatric exam: PRESENT: flat affect Skin exam: PRESENT: dry, warm Results Laboratory Results: 08/23/20 03:42 08/23/20 03:42 08/23/20 08/23/20 03:42 03:42 WBC 5.7 RBC 4.12 Hgb 11.8 L Hct 34.8 L MCV 85 MCH 28.7 MCHC 33.9 RDW 12.7 Plt Count 281 Seg Neutrophils % 77.4 Sodium 142.5 Potassium 3.9 Chloride 110 H Carbon Dioxide 21 L Anion Gap 12 BUN 8 Creatinine 0.59 Est GFR ( Amer) > 60 Glucose 131 H Calcium 10.0 Magnesium 2.2 Ferritin 244.00 Total Bilirubin 0.7 AST 62 H Alkaline Phosphatase 104 C-Reactive Protein 14.0 H Total Protein 7.0 Albumin 3.6 Lipase 122.8 08/22/20 08/22/20 08/23/20 00:06 01:46 03:42 Creatine Kinase 20 L CK-MB (CK-2) Troponin I Cancelled < 0.012 08/23/20 03:42 Creatine Kinase CK-MB (CK-2) 0.33 Troponin I < 0.012 Impressions: Chest X-Ray 08/21/20 20:09 IMPRESSION: Patchy left mid to lower lung zone opacity. Consider atelectasis or pneumonia/viral pneumonitis. Recommend follow-up to clearing as some of the opacity demonstrates a nodular configuration. Alternatively, these findings could be definitively assessed with CT. Abdomen/Pelvis CT 08/22/20 07:07 IMPRESSION: 1. Cholelithiasis. 2. Fluid-filled loops of distal small bowel may reflect mild ileus. Although the appendix is not discretely seen, no inflammatory process to suggest appendicitis. 3. Lung opacities. See separately dictated CT chest from same date. Chest CT 08/22/20 07:36 IMPRESSION: Bilateral pneumonia, more extensive in the left lower lobe. Assessment and Plan - Diagnosis (1) Nausea and vomiting Qualifiers: Vomiting type: unspecified Vomiting Intractability: non-intractable Qualified Code(s): R11.2 - Nausea with vomiting, unspecified Is this a current diagnosis for this admission?: Yes (2) Dehydration Is this a current diagnosis for this admission?: Yes - Plan Summary Summary: Her abdominal pain has obviously improved. She was asking if her diet could be advanced to a regular diet. We hope to get a HIDA scan tomorrow. I do not think that there is going to be any need for surgical intervention in the hospital, but this test will help to plan whether or not she would need a cholecystectomy as an outpatient. We have been treating her with the outpatient regimen for Covid known as i-MASK. There has been no need for steroids. I suspect what is actually going on is that she probably had Covid several weeks ago and has recovered from that, and is simply continuing to test positive, which can happen for a few months after the initial infection. She has never had any respiratory symptoms, and the only reason she was tested in the first place was because they thought she might go to the OR for cholecystectomy. Will likely discharge home tomorrow after she gets her HIDA scan. - Time Time Spent with patient: 15-24 minutes Anticipated Discharge Disposition: Home, Self Care Anticipated Discharge Timeframe: within 24 hours
[2020-08-23] MEDS: MELATONIN 5 MG TABLET PO SCH (22:07)
[2020-08-24] MEDS: PIPERACILLIN SODIUM/TAZOBACTAM 3.375 GM in NORMAL SALINE 100 ML IV SCH ×2 (05:35→11:26)
[2020-08-24] MEDS: RINGERS SOLUTION,LACTATED 1,000 ML IV PRN (05:48)
[2020-08-24 06:33] LABS: ABSOLUTE BASOPHILS # (AUTO) 0.1 10^3/uL (0.0-0.2); ABSOLUTE EOSINOPHILS # (AUTO) 0.1 10^3/uL (0.0-0.6); ABSOLUTE LYMPHOCYTES (AUTO) 2.4 10^3/uL (0.5-4.7); ABSOLUTE MONOCYTES (AUTO) 0.5 10^3/uL (0.1-1.4); ABSOLUTE NEUT (AUTO) 1.7 10^3/uL (1.7-8.2); BASOPHILS % (AUTO) 1.2 % (0-2); EOSINOPHILS % (AUTO) 1.9 % (0-6); HEMATOCRIT 31.6 % (36.0-47.0); LYMPHOCYTES % (AUTO) 49.7 % (13-45); MEAN CORPUSCULAR HEMOGLOBIN 29.7 pg (27.0-33.4); MEAN CORPUSCULAR HGB CONC 34.9 g/dL (32.0-36.0); MEAN CORPUSCULAR VOLUME 85 fl (80-97); MONOCYTES % (AUTO) 10.5 % (3-13); PLATELET COUNT 276 10^3/uL (150-450); RED BLOOD COUNT 3.71 10^6/uL (3.72-5.28); RED CELL DISTRIBUTION WIDTH 12.6 % (11.5-14.0); SEGMENTED NEUTROPHILS % (AUTO) 36.7 % (42-78); TOTAL CELLS COUNTED % (AUTO) 100 %; WHITE BLOOD COUNT 4.8 10^3/uL (4.0-10.5)
[2020-08-24 07:03] LABS: ALKALINE PHOSPHATASE 90 U/L (38-126); ANION GAP 6 (5-19); ASPARTATE AMINO TRANSFERASE 34 U/L (14-36); BILIRUBIN,DIRECT 0.2 mg/dL (0.0-0.4); BILIRUBIN,TOTAL 0.6 mg/dL (0.2-1.3); BLOOD UREA NITROGEN 4 mg/dL (7-20); C-REACTIVE PROTEIN 6.9 mg/L (<10.0); CALCIUM 9.6 mg/dL (8.4-10.2); CARBON DIOXIDE 25 mmol/L (22-30); CHLORIDE 112 mmol/L (98-107); GLUCOSE 89 mg/dL (75-110); POTASSIUM 3.8 mmol/L (3.6-5.0)
[2020-08-24] MEDS: ONDANSETRON HCL INJ/PF 4 MG/2 ML SDV IV PRN ×2 (08:20→12:58)
[2020-08-24] MEDS ORDERED: IVERMECTIN 3 MG TABLET PO ONE (10:00)
--- NOTE | 2020-08-24 10:08 | RADIOLOGY REPORT (SQ) ---
EXAM DESCRIPTION: NM HIDA SCAN IMAGES COMPLETED DATE/TIME: 08/24/2020 9:37 am REASON FOR STUDY: n/V, RUQ pain, gallstones COMPARISON: None. RADIONUCLIDE AND DOSE: DOSAGE RADIONUCLIDE: 5.44 millicuries Tc99m Mebrofenin. DOSAGE MORPHINE: Not required. The route of agent administration: Intravenous TECHNIQUE: Serial imaging right upper quadrant up to 60 minutes following injection of radionuclide. Patient imaged AP and Right Lateral. LIMITATIONS: None. FINDINGS: LIVER: Normal visualization without areas of photopenia. INTRA-HEPATIC BILE DUCTS: Temporal visualization normal. No dilatation. COMMON BILE DUCT: Normal without dilatation or delayed visualization. GALLBLADDER: Normal visualization. OTHER: No other significant finding. IMPRESSION: NORMAL STUDY WITHOUT CYSTIC OR COMMON DUCT OBSTRUCTION. TECHNICAL DOCUMENTATION: JOB ID: [id number] [employer]- All Rights Reserved Reading location - IP/workstation name: [email or web address]
[2020-08-24] MEDS: ENOXAPARIN SODIUM INJ 40 MG/0.4 ML DISP.SYRIN SUBCUT SCH (11:25)
[2020-08-24] MEDS: CHOLECALCIFEROL (D3) 1,000 UNIT (25 MCG) TABLET PO SCH (11:25)
[2020-08-24] MEDS: VITAMIN B COMPLEX TABLET PO SCH (11:26)
[2020-08-24] MEDS: ASCORBIC ACID 500 MG TABLET PO SCH (11:26)
[2020-08-24] MEDS: ZINC SULFATE 220 MG CAPSULE PO SCH (12:34)
[2020-08-24 14:41] VITALS: BP 121/71
--- NOTE | 2020-08-24 17:01 | PDOC DISCHARGE SUMMARY ---
Impression - Admit/DC Date/PCP Admission Date/Primary Care Provider: 08/22/20 11:30 OLLIE RIDLEY MD Discharge Date: 08/24/20 - Discharge Diagnosis (1) Nausea and vomiting Is this a current diagnosis for this admission?: Yes (2) Dehydration Is this a current diagnosis for this admission?: Yes - Assessment Summary: Her abdominal pain has obviously improved. She was asking if her diet could be advanced to a regular diet. We hope to get a HIDA scan tomorrow. I do not think that there is going to be any need for surgical intervention in the hospital, but this test will help to plan whether or not she would need a cholecystectomy as an outpatient. We have been treating her with the outpatient regimen for Covid known as i-MASK. There has been no need for steroids. I suspect what is actually going on is that she probably had Covid several weeks ago and has recovered from that, and is simply continuing to test positive, which can happen for a few months after the initial infection. She has never had any respiratory symptoms, and the only reason she was tested in the first place was because they thought she might go to the OR for cholecystectomy. Will likely discharge home tomorrow after she gets her HIDA scan. - Additional Information Resuscitation Status: Full Code Discharge Diet: As Tolerated Discharge Activity: Activity As Tolerated Referrals: VIOLET SALAS MD [ACTIVE STAFF] - 09/07/20 8:30 am ([facility]IVE AT 815 TO COMPLETE PAPERWORK) Prescriptions: Ondansetron [Zofran Odt 4 mg Tablet] 1 - 2 tab PO Q4HP PRN #20 tab.rapdis PRN Reason: For Nausea/Vomiting Home Medications: Methocarbamol [Robaxin 750 mg Tablet] 750 mg PO ASDIR PRN #40 tablet 08/17/20 Carvedilol [Coreg 3.125 mg Tablet] 3.125 mg PO TID 08/22/20 Losartan Potassium [Cozaar 25 mg Tablet] 25 mg PO DAILY 08/22/20 Ascorbic Acid [Vitamin C 500 mg Tablet] 1,000 mg PO BID tablet 08/24/20 Cholecalciferol (Vitamin D3) [Vitamin D3 1000 Unit Tablet] 2,000 unit PO DAILY tablet 08/24/20 Melatonin [Melatonin 5 mg Tablet] 10 mg PO QHS tablet 08/24/20 Ondansetron [Zofran Odt 4 mg Tablet] 1 - 2 tab PO Q4HP PRN #20 tab.rapdis 08/24/20 Vitamin B Complex [Vitamin B Complex Tablet] 1 tab PO DAILY tablet 08/24/20 Zinc Sulfate [Zinc-220 Capsule] 220 mg PO DAILY capsule 08/24/20 History of Present Illiness History of Present Illness: JULI LIM is a 54 year old female with a history of fibromyalgia, obesity, and an alleged history of nonischemic cardiomyopathy for which she has followed up at [facility]. She presents with persistent nausea, vomiting, and abdominal pain. She said that it started sometime around Thanksgiving. She has had nausea and vomiting off and on throughout this, and often when she feels hungry she will eat and then throw it back up. She said she has had a hard time keeping anything down consistently, and has tried to adequately hydrate even when she did not feel like eating. She says her pain is primarily in the right upper quadrant of her abdomen. She also feels some pain on the right side of her lower back. None of these symptoms are persistent, they come and go, but they do so frequently. She is not sure whether or not eating makes her abdominal pain worse. She has not noticed any fevers or shortness of breath. She has had a few bouts of diarrhea, and her bottom has felt sore as a result, and she thinks she may have seen some blood in her stool but cannot be certain. She has some mild elevations in her transaminases but they have been stable over several days, as she has been to the ER recently. She had a CT of the chest abdomen and pelvis which showed some cholelithiasis but no evidence of outright cholecystitis. No evidence of pancreatitis. She is currently comfortable on room air. Her vital signs are all stable and within normal limits. CT of the chest also showed some scant patchy opacities, worse in the left lower lobe. They decided to test her for Covid in the ER and it came back positive. Hospital Course Hospital Course: We treated her with the outpatient ASK regimen for COVID-19. I am not entirely certain that she had an active process, as she displays no symptoms, but her CRP was a little bit elevated so we went ahead and started treatment. All of her markers of inflammation have returned to normal. And her breathing overall has remained stable and she is been on room air the whole time. She has not required any steroids. She will continue vitamin supplementation at home. Her nausea has resolved. All of her labs are normal. She was found to have cholelithiasis on CT. HIDA scan was done that showed normal function of the gallbladder. An appointment with Dr. Salas has been set up as an outpatient for consultation regarding possible cholecystectomy. Her labs and examination were reassuring and she was discharged in stable condition. Physical Exam Vital Signs: Temp Pulse Resp BP Pulse Ox 98.1 F 64 18 121/71 95 08/24/20 14:34 08/24/20 14:34 08/24/20 14:34 08/24/20 14:34 08/24/20 14:34 Intake & Output 08/23/20 08/24/20 08/25/20 06:59 06:59 06:59 Intake Total 1170 2846 120 Output Total 300 Balance 870 2846 120 Weight 99.2 kg 99.2 kg 99.2 kg General appearance: PRESENT: no acute distress, cooperative, disheveled, obese Respiratory exam: PRESENT: clear to auscultation janki, symmetrical, unlabored. ABSENT: accessory muscle use, chest wall tenderness, crackles, prolonged expiratory phas, rhonchi, tachypnea, wheezes Cardiovascular exam: PRESENT: RRR, +S1, +S2 Pulses: PRESENT: normal carotid pulses Vascular exam: PRESENT: normal capillary refill GI/Abdominal exam: PRESENT: hypoactive bowel sounds, soft, tenderness - Right upper quadrant. ABSENT: distended, guarding, rebound Extremities exam: ABSENT: clubbing, pedal edema Musculoskeletal exam: PRESENT: normal inspection. ABSENT: deformity Neurological exam: PRESENT: awake, oriented to person, oriented to place, oriented to situation Psychiatric exam: PRESENT: flat affect Skin exam: PRESENT: dry, warm Results Laboratory Results: WBC 4.8 10^3/uL (4.0-10.5) 08/24/20 05:24 RBC 3.71 10^6/uL (3.72-5.28) L 08/24/20 05:24 Hgb 11.0 g/dL (12.0-15.5) L 08/24/20 05:24 Hct 31.6 % (36.0-47.0) L 08/24/20 05:24 MCV 85 fl (80-97) 08/24/20 05:24 MCH 29.7 pg (27.0-33.4) 08/24/20 05:24 MCHC 34.9 g/dL (32.0-36.0) 08/24/20 05:24 RDW 12.6 % (11.5-14.0) 08/24/20 05:24 Plt Count 276 10^3/uL (150-450) 08/24/20 05:24 Lymph % (Auto) 49.7 % (13-45) H 08/24/20 05:24 Esmeralda % (Auto) 10.5 % (3-13) 08/24/20 05:24 Eos % (Auto) 1.9 % (0-6) 08/24/20 05:24 Baso % (Auto) 1.2 % (0-2) 08/24/20 05:24 Absolute Neuts (auto) 1.7 10^3/uL (1.7-8.2) 08/24/20 05:24 Absolute Lymphs (auto) 2.4 10^3/uL (0.5-4.7) 08/24/20 05:24 Absolute Monos (auto) 0.5 10^3/uL (0.1-1.4) 08/24/20 05:24 Absolute Eos (auto) 0.1 10^3/uL (0.0-0.6) 08/24/20 05:24 Absolute Basos (auto) 0.1 10^3/uL (0.0-0.2) 08/24/20 05:24 Total Counted 100 08/22/20 00:06 Seg Neutrophils % 36.7 % (42-78) L 08/24/20 05:24 Seg Neuts % (Manual) 61 % (42-78) 08/22/20 00:06 Lymphocytes % (Manual) 21 % (13-45) 08/22/20 00:06 Monocytes % (Manual) 17 % (3-13) H 08/22/20 00:06 Eosinophils % (Manual) 1 % (0-6) 08/22/20 00:06 Basophils % (Manual) 0 % (0-2) 08/22/20 00:06 Abs Neuts (Manual) 3.6 10^3/uL (1.7-8.2) 08/22/20 00:06 Abs Lymphs (Manual) 1.2 10^3/uL (0.5-4.7) 08/22/20 00:06 Abs Monocytes (Manual) 1.0 10^3/uL (0.1-1.4) 08/22/20 00:06 Absolute Eos (Manual) 0.1 10^3/uL (0.0-0.6) 08/22/20 00:06 Abs Basophils (Manual) 0.0 10^3/uL (0.0-0.2) 08/22/20 00:06 Toxic Granulation SLIGHT 08/22/20 00:06 Toxic Vacuolation PRESENT 08/22/20 00:06 Platelet Comment ADEQUATE 08/22/20 00:06 RBC Morph Comment NORMO-CYTIC/CHROMIC 08/22/20 00:06 PT 13.6 SEC (11.4-15.4) 08/22/20 12:10 INR 1.02 08/22/20 12:10 APTT 28.1 SEC (23.5-35.8) 08/22/20 12:10 D-Dimer 0.28 ug/mL (0.00-0.50) 08/24/20 05:24 Sodium 143.0 mmol/L (137-145) 08/24/20 05:24 Potassium 3.8 mmol/L (3.6-5.0) 08/24/20 05:24 Chloride 112 mmol/L (98-107) H 08/24/20 05:24 Carbon Dioxide 25 mmol/L (22-30) 08/24/20 05:24 Anion Gap 6 (5-19) 08/24/20 05:24 BUN 4 mg/dL (7-20) L 08/24/20 05:24 Creatinine 0.65 mg/dL (0.52-1.25) 08/24/20 05:24 Est GFR ( Amer) > 60 (>60) 08/24/20 05:24 Est GFR (Non-Af Amer) Cancelled 08/22/20 00:06 Est GFR (MDRD) Non-Af > 60 (>60) 08/24/20 05:24 Glucose 89 mg/dL (75-110) 08/24/20 05:24 Calcium 9.6 mg/dL (8.4-10.2) 08/24/20 05:24 Magnesium 2.0 mg/dL (1.6-2.3) 08/24/20 05:24 Ferritin 176.00 ng/mL (11.1-264.0) 08/24/20 05:24 Total Bilirubin 0.6 mg/dL (0.2-1.3) 08/24/20 05:24 Direct Bilirubin 0.2 mg/dL (0.0-0.4) 08/24/20 05:24 Neonat Total Bilirubin Not Reportable 08/24/20 05:24 Neonat Direct Bilirubin Not Reportable 08/24/20 05:24 Neonat Indirect Bili Not Reportable 08/24/20 05:24 AST 34 U/L (14-36) 08/24/20 05:24 ALT 69 U/L (<35) H 08/24/20 05:24 Alkaline Phosphatase 90 U/L (38-126) 08/24/20 05:24 Creatine Kinase 20 U/L (30-135) L 08/23/20 03:42 CK-MB (CK-2) 0.33 ng/mL (<4.55) 08/23/20 03:42 Troponin I < 0.012 ng/mL 08/23/20 03:42 C-Reactive Protein 6.9 mg/L (<10.0) 08/24/20 05:24 Total Protein 6.0 g/dL (6.3-8.2) L 08/24/20 05:24 Albumin 3.0 g/dL (3.5-5.0) L 08/24/20 05:24 Lipase 174.0 U/L (23-300) 08/24/20 05:24 EGFR Cancelled 08/22/20 00:06 COVID-19 Source See comment 08/22/20 04:17 COVID-19 (JOSSE) Not Detected (Not Detect) 08/22/20 04:17 Influenza A (RT-PCR) NEGATIVE (NEGATIVE) 08/22/20 09:30 Influenza B (RT-PCR) NEGATIVE (NEGATIVE) 08/22/20 09:30 RSV (RT-PCR) NEGATIVE (NEGATIVE) 08/22/20 09:30 SARS-CoV-2 Rap RNA(RT-PCR) POSITIVE (NEGATIVE) H 08/22/20 09:30 08/22/20 08/22/20 08/23/20 00:06 01:46 03:42 CK-MB (CK-2) 0.33 Troponin I Cancelled < 0.012 < 0.012 Impressions: Chest X-Ray 08/21/20 20:09 IMPRESSION: Patchy left mid to lower lung zone opacity. Consider atelectasis or pneumonia/viral pneumonitis. Recommend follow-up to clearing as some of the opacity demonstrates a nodular configuration. Alternatively, these findings could be definitively assessed with CT. Abdomen/Pelvis CT 08/22/20 07:07 IMPRESSION: 1. Cholelithiasis. 2. Fluid-filled loops of distal small bowel may reflect mild ileus. Although the appendix is not discretely seen, no inflammatory process to suggest appendicitis. 3. Lung opacities. See separately dictated CT chest from same date. Chest CT 08/22/20 07:36 IMPRESSION: Bilateral pneumonia, more extensive in the left lower lobe. Hepatobiliary Scan Nuclear Medicine 08/24/20 00:00 IMPRESSION: NORMAL STUDY WITHOUT CYSTIC OR COMMON DUCT OBSTRUCTION. Plan Time Spent: Greater than 30 Minutes Stroke Is this a Stroke Patient?: No Acute Heart Failure Is this a Heart Failure Patient?: No
[2020-08-25] MEDS ORDERED: INFLUENZA QUAD (6MOS+) 2020-21 VAC 0.5 ML SYR IM ONE (08:00)
== END 2020-08-24 15:30 | disposition home or self-care (01) | DRG 445 ==
LOC: ER 19:01 → EH 08-22 11:30 → 4S 08-22 13:45
PROVIDERS: ADMIT Family Medicine; ATTEND Family Medicine
DX: K80.20 Calculus of gallbladder without cholecystitis without obstruction (principal); I42.8 Other cardiomyopathies; E86.0 Dehydration; M79.7 Fibromyalgia; E66.9 Obesity, unspecified; D64.9 Anemia, unspecified; Z68.32 Body mass index [BMI] 32.0-32.9, adult; Z86.16 Personal history of COVID-19; Z79.899 Other long term (current) drug therapy; Z88.8 Allergy status to other drugs, medicaments and biological substances; Z91.018 Allergy to other foods
CPT/HCPCS: 36415; 71045; 71260; 74177; 78226; 80053; 82550; 82553; 82728; 83690; 83735; 84484; 85025; 85379; 85610; 85730; 86140; 87040; 87077; 87150; 87635; 93005; 93010; 96361; 96365; 96375; 99285; 0241U; A9537; C9803; J0456; J0696; J1100; J1650; J2270; J2405; J2543; J2765; J3010; J3490; J7030; J7050; J7120; Q9969